=== PATIENT | female | born 1945 | race Two or more races ===

== ENCOUNTER 2022-08-07 21:55 | Emergency (ER) | payer MEDICARE, OTHER ==
[~2022-08-07] VITALS: Ht 175.3 cm; Wt 61.2 kg
[2022-08-07] MEDS ORDERED: KETOROLAC TROMETH 60MG/2ML VIAL IM ONE (22:45)
[2022-08-08 01:38] VITALS: BP 155/93
== END 2022-08-08 01:45 | disposition home or self-care (01) ==
LOC: EDBD 21:55 → ER 21:55
DX: M54.2 Cervicalgia (principal); M19.90 Unspecified osteoarthritis, unspecified site
CPT/HCPCS: 72125; 96372; 99285; J1885